=== PATIENT | female | born 1970 | race Hispanic/Latino ===

== ENCOUNTER → 2021-01-21 | Outpatient (CLI) | payer OTHER | LOC: MRI 08:00 | PROVIDERS: ATTEND Internal Medicine | DX: M54.32 Sciatica, left side (principal) | CPT/HCPCS: 72148 ==

== ENCOUNTER 2021-03-01 13:41 | Emergency (ER) | payer OTHER ==
[~2021-03-01] VITALS: Ht 149.9 cm; Wt 131.5 kg
[2021-03-01] MEDS ORDERED: CASIRIVIMAB/IMDEVIMAB 10 ML in SODIUM CHLORIDE 0.9% 100 ML IV ONE (15:15)
[2021-03-01 17:45] VITALS: BP 136/71
== END 2021-03-01 17:45 | disposition home or self-care (01) ==
LOC: ER 15:15
DX: R50.9 Fever, unspecified (principal); U07.1 COVID-19; I10 Essential (primary) hypertension; E11.9 Type 2 diabetes mellitus without complications; G47.30 Sleep apnea, unspecified
CPT/HCPCS: 99283; J7050

== ENCOUNTER 2021-04-14 12:36 | Observation (INO) | payer OTHER ==
[~2021-04-14] VITALS: Ht 149.9 cm; Wt 113.4 kg
[2021-04-14 13:26] LABS: BASOPHILS % 0.4 % (0.0-1.0); EOSINOPHILS # (AUTO) 0.1 (0.0-0.4); EOSINOPHILS % 1.2 % (0.0-6.0); HEMATOCRIT 38.1 % (34.2-44.1); HEMOGLOBIN 11.8 g/dL (12.0-16.0); LYMPHOCYTES # (AUTO) 2.2 (1.0-3.2); LYMPHOCYTES % 30.1 % (18.0-39.1); MEAN CORPUSCULAR HEMOGLOBIN 26.8 pg (28-32); MEAN CORPUSCULAR VOLUME 86.4 fL (81-99); MONOCYTES # (AUTO) 0.6 (0.2-0.8); MONOCYTES % 8.2 % (4.4-11.3); NEUTROPHILS # (AUTO) 4.4 (2.1-6.9); NEUTROPHILS % 59.7 % (38.7-80.0); PLATELET COUNT 209 x10e3/uL (140-360); RED BLOOD COUNT 4.41 x10e6/uL (3.6-5.1); RED CELL DISTRIBUTION WIDTH 14.6 % (11.7-14.4)
[2021-04-14 13:46] LABS: INR 1.01; PROTHROMBIN TIME 13.5 seconds (11.9-14.5)
[2021-04-14 13:47] LABS: PARTIAL THROMBOPLASTIN TIME 32.3 seconds (23.8-35.5)
[2021-04-14 13:58] LABS: ALANINE AMINOTRANSFERASE 20 IU/L (0-55); ALBUMIN 4.3 g/dL (3.5-5.0); ALBUMIN/GLOBULIN RATIO 1.3 (0.8-2.0); ALKALINE PHOSPHATASE 77 IU/L (40-150); ANION GAP 13.6 mmol/L (8-16); BLOOD UREA NITROGEN 12 mg/dL (7-26); BUN/CREATININE RATIO 22 (6-25); CALCIUM 9.1 mg/dL (8.4-10.2); CARBON DIOXIDE 26 mmol/L (22-29); CHLORIDE 103 mmol/L (98-107); CREATINE KINASE 54 IU/L (29-168); CREATININE, SERUM 0.55 mg/dL (0.57-1.11); EST GLOMERULAR FILTRATION RATE 116 ML/MIN (60-); GLUCOSE 166 mg/dL (74-118); MAGNESIUM 1.7 MG/DL (1.3-2.1); POTASSIUM 3.6 mmol/L (3.5-5.1); SODIUM 139 mmol/L (136-145)
[2021-04-14 14:18] LABS: THYROID STIMULATING HORMONE 5.754 uIU/mL (0.350-4.940)
[2021-04-14 14:59] LABS: CLARITY,URINE CLEAR (CLEAR); COLOR,URINE YELLOW (YELLOW)
[2021-04-14 15:00] LABS: KETONES,URINE NEGATIVE (NEGATIVE); LEUKOCYTE ESTERASE ,URINE NEGATIVE (NEGATIVE); NITRITE,URINE NEGATIVE (NEGATIVE); PROTEIN,URINE DIPSTICK NEGATIVE (NEGATIVE); URINE UROBILINOGEN 1 mg/dL (0.2 - 1)
[2021-04-14 15:08] LABS: BACTERIA,URINE FEW /HPF; EPITHELIAL CELLS,URINE MODERATE /LPF; RBC,URINE 0-5 /HPF (0-5); WBC,URINE (MAN) 0-5 /HPF (0-5)
[2021-04-14] MEDS ORDERED: ASPIRIN 81 MG CHEW TAB PO STA (15:40)
[2021-04-14] MEDS ORDERED: ONDANSETRON HCL INJ 2MG/ML 2ML 2 MG/ML VIAL IV PRN (15:45)
[2021-04-14] MEDS ORDERED: DEXTROSE 50% SYRINGE 50 ML IV ONE (16:10)
[2021-04-14] MEDS ORDERED: DEXTROSE 50% SYRINGE 50 ML IV PRN ×2 (16:15→17:15)
[2021-04-14] MEDS ORDERED: CASIRIVIMAB/IMDEVIMAB 10 ML in SODIUM CHLORIDE 0.9% 100 ML IV ONE (17:45)
[2021-04-14] MEDS ORDERED: HYDRALAZINE HCL 20 MG/ML VIAL IV PRN (18:00)
[2021-04-14 19:00] VITALS: BP 140/88
[2021-04-14] MEDS ORDERED: GABAPENTIN600 MG PO (20:17)
[2021-04-14] MEDS ORDERED: NOVOLIN R100 UNIT/1 IM (20:17)
[2021-04-14] MEDS ORDERED: METFORMIN HCL1000 MG PO (20:17)
[2021-04-14] MEDS ORDERED: ATORVASTATIN CA40 MG PO (20:17)
[2021-04-14] MEDS ORDERED: LISINOPRIL10 MG PO (20:17)
[2021-04-14] MEDS ORDERED: TRULICITY3 MG/0.5 M IM (20:17)
[2021-04-14] MEDS ORDERED: LANTUS 3ML100 UNITS/ IM (20:17)
[2021-04-14] MEDS ORDERED: CLOPIDOGREL BISULFATE 75 MG TAB PO ONE (20:30)
[2021-04-14 20:38] LABS: CREATINE KINASE MB 2.5 ng/mL (0-5.0)
[2021-04-14] MEDS: INSULIN LISPRO 100 UNIT/1 ML 3ML VIAL SQ SCH (20:42)
[2021-04-14] MEDS: GABAPENTIN 300 MG CAP PO SCH (20:42)
[2021-04-14] MEDS ORDERED: ATORVASTATIN 20 MG TAB PO SCH (21:00)
[2021-04-14 22:15] VITALS: BP 135/94
[2021-04-15] VITALS (7 sets, daily range): BP systolic 114–138; BP diastolic 66–95
[2021-04-15 05:08] LABS: BASOPHILS # (AUTO) 0.1 (0.0-0.1); BASOPHILS % 0.6 % (0.0-1.0); EOSINOPHILS # (AUTO) 0.1 (0.0-0.4); EOSINOPHILS % 1.4 % (0.0-6.0); HEMATOCRIT 36.3 % (34.2-44.1); HEMOGLOBIN 11.4 g/dL (12.0-16.0); LYMPHOCYTES # (AUTO) 2.2 (1.0-3.2); LYMPHOCYTES % 28.5 % (18.0-39.1); MEAN CORPUSCULAR HGB CONC 31.4 g/dL (31-35); MONOCYTES # (AUTO) 0.7 (0.2-0.8); MONOCYTES % 8.7 % (4.4-11.3); NEUTROPHILS # (AUTO) 4.7 (2.1-6.9); NEUTROPHILS % 60.5 % (38.7-80.0); PLATELET COUNT 197 x10e3/uL (140-360); RED BLOOD COUNT 4.22 x10e6/uL (3.6-5.1); RED CELL DISTRIBUTION WIDTH 14.6 % (11.7-14.4)
[2021-04-15 05:40] LABS: ALBUMIN 3.6 g/dL (3.5-5.0); ALBUMIN/GLOBULIN RATIO 1.1 (0.8-2.0); ANION GAP 11.8 mmol/L (8-16); CALCIUM 8.7 mg/dL (8.4-10.2); CHOL/HDL RATIO 3.2 (3.0-3.6); CREATININE, SERUM 0.52 mg/dL (0.57-1.11); POTASSIUM 3.8 mmol/L (3.5-5.1)
[2021-04-15 05:57] LABS: CREATINE KINASE 45 IU/L (29-168)
[2021-04-15 05:58] LABS: MAGNESIUM 1.8 MG/DL (1.3-2.1)
[2021-04-15 06:19] LABS: FREE T4 (FREE THYROXINE) 0.75 ng/dL (0.8-1.8)
[2021-04-15] MEDS ORDERED: MAGNESIUM OXIDE 400 MG TAB PO NR (08:00)
[2021-04-15] MEDS ORDERED: LEVOTHYROXINE SODIUM 25 MCG TABLET PO SCH (08:00)
[2021-04-15] MEDS: INSULIN REGULAR, HUMAN 100 UNIT/1 ML SQ SCH ×2 (08:00→12:20)
[2021-04-15] MEDS: GABAPENTIN 300 MG CAP PO SCH (08:37)
[2021-04-15] MEDS ORDERED: CLOPIDOGREL BISULFATE 75 MG TAB PO SCH (09:00)
[2021-04-15] MEDS ORDERED: ASPIRIN 81 MG CHEW TAB PO SCH (09:00)
[2021-04-15] MEDS ORDERED: INSULIN GLARGINE 100 UNITS/ML VIAL SQ SCH (09:00)
[2021-04-15] MEDS ORDERED: ASPIRIN 81 MG ENTERIC COATED PO SCH (09:00)
[2021-04-15] MEDS ORDERED: LISINOPRIL 10 MG TAB PO SCH (09:00)
[2021-04-15] MEDS: INSULIN LISPRO 100 UNIT/1 ML 3ML VIAL SQ SCH ×2 (09:25→12:20)
[2021-04-15] MEDS ORDERED: LEVOTHYROXINE25 MCG PO (12:33)
[2021-04-15] MEDS ORDERED: ASPIRIN EC81 MG PO (12:33)
[2021-04-15] MEDS ORDERED: PLAVIX75 MG PO (12:33)
== END 2021-04-15 13:33 | disposition home or self-care (01) ==
LOC: ER 13:31 → ERHOLD 15:47 → IMCU 18:28
PROVIDERS: ADMIT Internal Medicine; ATTEND Internal Medicine
DX: R20.2 Paresthesia of skin (principal); I10 Essential (primary) hypertension; E11.9 Type 2 diabetes mellitus without complications; E78.5 Hyperlipidemia, unspecified; Z88.8 Allergy status to other drugs, medicaments and biological substances; E66.9 Obesity, unspecified; M54.32 Sciatica, left side; R60.0 Localized edema; Z68.43 Body mass index [BMI] 50.0-59.9, adult; Z20.822 Contact with and (suspected) exposure to COVID-19
CPT/HCPCS: 36415 ×2; 70450; 70551; 71045; 80053 ×2; 80061; 81001; 82550 ×2; 82553 ×2; 82948 ×2; 83036; 83735 ×2; 84439; 84443; 84484 ×2; 84702; 85025 ×2; 85610; 85730; 87086; 93005; 93306; 93880; 93970; 96372 ×2; 99284; G0378 ×2; J7799; U0002

== ENCOUNTER 2021-06-14 08:11 | Emergency (ER) | payer OTHER ==
[~2021-06-14] VITALS: Ht 149.9 cm; Wt 113.4 kg
[~2021-06-14 08:11] MED LIST: ASPIRIN EC81 MG PO; ATORVASTATIN CA40 MG PO; GABAPENTIN600 MG PO; LANTUS 3ML100 UNITS/ IM; LEVOTHYROXINE25 MCG PO; LISINOPRIL10 MG PO; METFORMIN HCL1000 MG PO; NOVOLIN R100 UNIT/1 IM; PLAVIX75 MG PO; TRULICITY3 MG/0.5 M IM
[2021-06-14] MEDS ORDERED: TETANUS/DIPHTHERIA TOX ADULT 0.5 ML SYR IM ONE (08:30)
[2021-06-14 08:54] LABS: BASOPHILS % 0.5 % (0.0-1.0); EOSINOPHILS # (AUTO) 0.6 (0.0-0.4); EOSINOPHILS % 7.6 % (0.0-6.0); HEMATOCRIT 38.4 % (34.2-44.1); HEMOGLOBIN 12.1 g/dL (12.0-16.0); LYMPHOCYTES # (AUTO) 1.9 (1.0-3.2); LYMPHOCYTES % 24.7 % (18.0-39.1); MEAN CORPUSCULAR HEMOGLOBIN 26.9 pg (28-32); MEAN CORPUSCULAR HGB CONC 31.5 g/dL (31-35); MEAN CORPUSCULAR VOLUME 85.5 fL (81-99); MONOCYTES # (AUTO) 0.6 (0.2-0.8); MONOCYTES % 7.6 % (4.4-11.3); NEUTROPHILS # (AUTO) 4.6 (2.1-6.9); NEUTROPHILS % 59.3 % (38.7-80.0); PLATELET COUNT 176 x10e3/uL (140-360); RED BLOOD COUNT 4.49 x10e6/uL (3.6-5.1); RED CELL DISTRIBUTION WIDTH 14.7 % (11.7-14.4)
[2021-06-14 09:11] LABS: INR 0.96; PROTHROMBIN TIME 13.6 seconds (11.9-14.5)
[2021-06-14 09:22] LABS: ALBUMIN 4.2 g/dL (3.5-5.0); ALBUMIN/GLOBULIN RATIO 1.2 (0.8-2.0); ANION GAP 16.3 mmol/L (8-16); CALCIUM 9.5 mg/dL (8.4-10.2); CREATININE, SERUM 0.59 mg/dL (0.57-1.11); POTASSIUM 4.3 mmol/L (3.5-5.1)
[2021-06-14 10:13] VITALS: BP 121/69
== END 2021-06-14 10:00 | disposition home or self-care (01) ==
LOC: ER 08:19
DX: R20.2 Paresthesia of skin (principal); I10 Essential (primary) hypertension; E11.9 Type 2 diabetes mellitus without complications; E78.5 Hyperlipidemia, unspecified; Z88.8 Allergy status to other drugs, medicaments and biological substances
CPT/HCPCS: 36415; 70450; 80053; 82948; 84484; 85025; 85610; 93005; 99283

== ENCOUNTER 2021-11-16 15:52 | Emergency (ER) | payer OTHER ==
[~2021-11-16] VITALS: Ht 149.9 cm; Wt 113.4 kg
== END 2021-11-16 17:18 | disposition home or self-care (01) ==
LOC: ER 16:10
DX: H93.8X3 Other specified disorders of ear, bilateral (principal); J30.2 Other seasonal allergic rhinitis; I10 Essential (primary) hypertension; E11.9 Type 2 diabetes mellitus without complications; E78.5 Hyperlipidemia, unspecified; G47.30 Sleep apnea, unspecified; Z86.73 Personal history of transient ischemic attack (TIA), and cerebral infarction without residual deficits
CPT/HCPCS: 99282

== ENCOUNTER 2022-01-03 11:22 | Emergency (ER) | payer OTHER ==
[~2022-01-03] VITALS: Ht 149.9 cm; Wt 113.4 kg
[2022-01-03] MEDS ORDERED: KETOROLAC TROMETHAMINE 60 MG/2 ML VIAL IM ONE (11:45)
[2022-01-03] MEDS ORDERED: NAPROSYN500 MG PO (13:44)
== END 2022-01-03 14:03 | disposition home or self-care (01) ==
LOC: ER 11:30
DX: S83.8X1A Sprain of other specified parts of right knee, initial encounter (principal); S93.491A Sprain of other ligament of right ankle, initial encounter; W01.0XXA Fall on same level from slipping, tripping and stumbling without subsequent striking against object, initial encounter; Y93.01 Activity, walking, marching and hiking; Y92.814 Boat as the place of occurrence of the external cause; I10 Essential (primary) hypertension; E11.9 Type 2 diabetes mellitus without complications; E78.5 Hyperlipidemia, unspecified; G47.30 Sleep apnea, unspecified; Z86.73 Personal history of transient ischemic attack (TIA), and cerebral infarction without residual deficits
CPT/HCPCS: 99283

== ENCOUNTER → 2022-01-05 | Outpatient (CLI) | payer OTHER ==
[~2022-01-05] MED LIST changes: +NAPROSYN500 MG PO
== END ==
LOC: SLEEP 20:23
PROVIDERS: ATTEND Internal Medicine
DX: G47.33 Obstructive sleep apnea (adult) (pediatric) (principal); G47.19 Other hypersomnia; E66.01 Morbid (severe) obesity due to excess calories
CPT/HCPCS: 95811

== ENCOUNTER → 2022-01-21 | Outpatient (CLI) | payer OTHER | LOC: CT 14:38 | PROVIDERS: ATTEND Otolaryngology | DX: H69.91 Unspecified Eustachian tube disorder, right ear (principal) | CPT/HCPCS: 70480 ==